=== PATIENT | male | born 1945 | race Caucasian/White ===

== ENCOUNTER 2019-02-27 00:59 | Inpatient (IN) ==
[~2019-02-27 00:59] MED LIST: HEPARIN/NACL 0.9% 2 UNITS/ML 1,000 ML IV ONE; HYDROmorphone 2 MG/1 ML VIAL ONE; LIDOCAINE 1% 20 ML VIAL ONE; MIDAZOLAM 2 MG/2 ML VIAL ONE; NITROGLYCERIN DRIP 50 MG/250 ML BOTTLE IV ONE; VERAPAMIL 5 MG/2 ML VIAL ONE
[2019-02-27] MEDS ORDERED: ENOXAPARIN 30 MG/0.3 ML SYRINGE ONE (01:12)
[2019-02-27] MEDS ORDERED: TICAGRELOR 90 MG TABLET ONE (02:09)
[2019-02-27] MEDS ORDERED: ZALEPLON 5 MG CAPSULE PO PRN (02:13)
[2019-02-27] MEDS ORDERED: EPTIFIBATIDE 20,000 MCG/10 ML VIAL ONE (02:15)
[2019-02-27] MEDS ORDERED: SODIUM CHLORIDE 0.9% 1,000 ML IV SCH (02:30)
[2019-02-27 03:47] LABS: Basophils % 0.2 % (0.0-0.8); Eosinophils % 0.1 % (0.00-10.9); Hematocrit 35.9 VOL% (42.0-52.0); Hemoglobin 11.8 GM/DL (14.0-18.0); Immature Granulocytes % 0.5 %; Immature Granulocytes Absolute 0.06 #; Lymphocytes # 0.8 10*3/uL (1.4-4.0); Lymphocytes % 6.3 % (21.2-54.2); Mean Corpuscular HGB Conc 32.9 GM/DL (32-36); Mean Corpuscular Volume 88.2 FL (87-102); Mean Platelet Volume 10.3 FL (9.6-12.0); Monocytes % 4.4 % (1.7-12.7); Neutrophils % 88.5 % (38.7-73.9); Platelet Count 167 T/CUMM (130-400); Red Blood Count 4.07 MC/CUMM (3.8-5.5); Red Cell Distribution Width 11.9 % (9.3-17.3); White Blood Count 12.1 T/CUMM (4-12)
[2019-02-27 04:14] LABS: Calcium 8.1 MG/DL (8.5-10.1); Osmolality,Calculated 282.4 MOS/KG (273-304); Risk Ratio 1.83; VLDL CHOLESTEROL 10.4 MG/DL
[2019-02-27 04:51] LABS: CKMB % 9.3 %
[2019-02-27 05:00] LABS: Troponin I 29.1 NG/ML (0.00-0.045)
[2019-02-27 06:43] LABS: CKMB % 11.1 %
[2019-02-27 06:45] LABS: Troponin I 70.3 NG/ML (0.00-0.045)
[2019-02-27 08:46] LABS: CKMB % 10.3 %
[2019-02-27 08:47] LABS: Troponin I 87.1 NG/ML (0.00-0.045)
[2019-02-27] MEDS ORDERED: DEXTROSE 50% 25 GM/50 ML SYRINGE IV PRN (08:49)
[2019-02-27] MEDS ORDERED: GLUCAGON 1 MG VIAL IM PRN (08:49)
[2019-02-27] MEDS: METOPROLOL TARTRATE 50 MG TABLET PO SCH ×2 (09:14→21:12)
[2019-02-27] MEDS: ASPIRIN EC 81 MG TABLET PO SCH (09:14)
[2019-02-27] MEDS: LOSARTAN 25 MG TABLET PO SCH (09:14)
[2019-02-27] MEDS: TICAGRELOR 90 MG TABLET PO SCH ×2 (09:14→21:12)
[2019-02-27] MEDS: TAMSULOSIN 0.4 MG CAPSULE PO SCH ×2 (12:33→21:12)
[2019-02-27] MEDS: INSULIN REGULAR 100 UNIT/ML SUBCUT SCH ×2 (16:14→21:15)
[2019-02-27] MEDS: SILDENAFIL 20 MG TABLET PO SCH ×2 (16:15→21:10)
[2019-02-27] MEDS ORDERED: ROSUVASTATIN 20 MG TABLET PO SCH (21:00)
[2019-02-28 03:53] LABS: CKMB % 3.8 %; Osmolality,Calculated 283.3 MOS/KG (273-304); Troponin I 39.3 NG/ML (0.00-0.045)
[2019-02-28 05:06] LABS: Basophils % 0.2 % (0.0-0.8); Eosinophils # 0.2 10*3/uL (0.0-0.87); Eosinophils % 1.5 % (0.00-10.9); Hematocrit 34.7 VOL% (42.0-52.0); Hemoglobin 11.6 GM/DL (14.0-18.0); Immature Granulocytes % 0.2 %; Immature Granulocytes Absolute 0.02 #; Lymphocytes # 1.4 10*3/uL (1.4-4.0); Lymphocytes % 14.5 % (21.2-54.2); Mean Corpuscular HGB Conc 33.4 GM/DL (32-36); Mean Platelet Volume 10.3 FL (9.6-12.0); Neutrophils % 74.6 % (38.7-73.9); Platelet Count 170 T/CUMM (130-400); Red Blood Count 3.99 MC/CUMM (3.8-5.5); Red Cell Distribution Width 12.2 % (9.3-17.3); White Blood Count 9.8 T/CUMM (4-12)
[2019-02-28] MEDS: INSULIN REGULAR 100 UNIT/ML SUBCUT SCH ×3 (08:39→16:23)
[2019-02-28] MEDS ORDERED: GLIMEPIRIDE 2 MG TABLET PO SCH (09:00)
[2019-02-28] MEDS: LOSARTAN 25 MG TABLET PO SCH (09:43)
[2019-02-28] MEDS: TICAGRELOR 90 MG TABLET PO SCH (09:43)
[2019-02-28] MEDS: ASPIRIN EC 81 MG TABLET PO SCH (09:43)
[2019-02-28] MEDS: METOPROLOL TARTRATE 50 MG TABLET PO SCH (09:44)
[2019-02-28] MEDS: TAMSULOSIN 0.4 MG CAPSULE PO SCH (09:47)
[2019-02-28] MEDS: SILDENAFIL 20 MG TABLET PO SCH ×2 (09:47→14:52)
[2019-02-28 16:25] VITALS: BP 104/58
[2019-03-01] MEDS ORDERED: QUINAPRIL 5 MG TABLET PO SCH (09:00)
== END 2019-02-28 16:44 | disposition home or self-care (01) | DRG 247 ==
LOC: N.CC 00:59 → N.ICU 02:21 → N.TELES 16:49
PROVIDERS: ADMIT Internal Medicine Cardiovascular Disease; ATTEND Internal Medicine Cardiovascular Disease

== ENCOUNTER 2021-02-12 10:45 | Observation (INO) ==
[2021-02-12 11:12] LABS: Basophils % 0.3 % (0.0-0.8); Eosinophils # 0.1 10*3/uL (0.0-0.87); Eosinophils % 0.9 % (0.00-10.9); Hematocrit 42.1 VOL% (42.0-52.0); Hemoglobin 13.9 GM/DL (14.0-18.0); Immature Granulocytes % 0.4 %; Immature Granulocytes Absolute 0.05 #; Lymphocytes % 8.8 % (21.2-54.2); Mean Corpuscular Volume 87.9 FL (87-102); Mean Platelet Volume 9.3 FL (9.6-12.0); Monocytes % 7.1 % (1.7-12.7); Neutrophils % 82.5 % (38.7-73.9); Platelet Count 220 T/CUMM (130-400); Red Blood Count 4.79 MC/CUMM (3.8-5.5); Red Cell Distribution Width 12.3 % (9.3-17.3); White Blood Count 11.6 T/CUMM (4-12)
[2021-02-12] MEDS ORDERED: NITROGLYCERIN SL 0.4 MG TABLET SL PRN (11:12)
[2021-02-12 11:30] LABS: INR 1.1; PT Patient Result 12.1 SECS (10.5-12.0)
[2021-02-12] MEDS ORDERED: ALUM/MAG/SIMETH/LIDO VISC 1:1 30 ML BOTTLE PO ONE (11:33)
[2021-02-12 11:34] LABS: Albumin 4.1 G/DL (3.4-5.0); Calcium 9.4 MG/DL (8.5-10.1); Osmolality,Calculated 283.3 MOS/KG (273-304); Potassium 3.9 MMOL/L (3.5-5.1); Total Protein 7.2 G/DL (6.4-8.2)
[2021-02-12] MEDS ORDERED: ALUM/MAG/SIMETH/LIDO VISC 1:1 30 ML BOTTLE PO STA (11:39)
[2021-02-12] MEDS ORDERED: ONDANSETRON 4 MG/2 ML VIAL IV PRN (12:07)
[2021-02-12] MEDS ORDERED: DEXTROSE 50% 25 GM/50 ML VIAL IV PRN (12:07)
[2021-02-12] MEDS ORDERED: GLUCAGON 1 MG VIAL IM PRN (12:07)
[2021-02-12] MEDS ORDERED: ACETAMINOPHEN 325 MG TABLET PO PRN (12:07)
[2021-02-12] MEDS ORDERED: ENOXAPARIN 40 MG/0.4 ML SYRINGE SUBCUT SCH (12:30)
[2021-02-12 12:42] LABS: Risk Ratio 2.08; Thyroid Stimulating Hormone 3.09 uIU/ml (0.358-3.74); VLDL CHOLESTEROL 15.8 MG/DL
[2021-02-12] MEDS: INSULIN LISPRO 100 UNIT/ML SUBCUT SCH ×2 (16:30→21:34)
[2021-02-12] MEDS ORDERED: TAMSULOSIN 0.4 MG CAPSULE PO SCH (21:00)
[2021-02-12] MEDS ORDERED: ROSUVASTATIN 20 MG TABLET PO SCH (21:00)
[2021-02-12] MEDS: carvediloL 3.125 MG TABLET PO SCH (21:30)
[2021-02-13 06:07] LABS: Basophils % 0.3 % (0.0-0.8); Eosinophils # 0.3 10*3/uL (0.0-0.87); Eosinophils % 2.9 % (0.00-10.9); Hematocrit 38.7 VOL% (42.0-52.0); Hemoglobin 12.5 GM/DL (14.0-18.0); Immature Granulocytes % 0.3 %; Immature Granulocytes Absolute 0.03 #; Lymphocytes # 1.3 10*3/uL (1.4-4.0); Lymphocytes % 14.1 % (21.2-54.2); Mean Corpuscular HGB Conc 32.3 GM/DL (32-36); Mean Platelet Volume 9.9 FL (9.6-12.0); Monocytes % 8.2 % (1.7-12.7); Neutrophils % 74.2 % (38.7-73.9); Platelet Count 207 T/CUMM (130-400); Red Blood Count 4.35 MC/CUMM (3.8-5.5); Red Cell Distribution Width 12.1 % (9.3-17.3); White Blood Count 9.4 T/CUMM (4-12)
[2021-02-13 06:23] LABS: Calcium 8.9 MG/DL (8.5-10.1); Osmolality,Calculated 280.4 MOS/KG (273-304); Potassium 3.8 MMOL/L (3.5-5.1)
[2021-02-13] MEDS ORDERED: LEVOTHYROXINE 75 MCG TABLET PO SCH (07:00)
[2021-02-13] MEDS ORDERED: LEVOTHYROXINE 50 MCG TABLET PO SCH (07:00)
[2021-02-13] MEDS ORDERED: NITROFURANTOIN MACRO/MONO 100 MG CAPSULE PO SCH (08:00)
[2021-02-13] MEDS: INSULIN LISPRO 100 UNIT/ML SUBCUT SCH (08:04)
[2021-02-13 08:16] VITALS: BP 141/72
[2021-02-13] MEDS ORDERED: lisinopriL 5 MG TABLET PO SCH (09:00)
[2021-02-13] MEDS ORDERED: CLOPIDOGREL 75 MG TABLET PO SCH (09:00)
[2021-02-13] MEDS ORDERED: ASPIRIN EC 81 MG TABLET PO SCH (09:00)
[2021-02-13] MEDS ORDERED: PANTOPRAZOLE 40 MG TABLET PO SCH (09:00)
[2021-02-13] MEDS ORDERED: PHENOL 1.4% THROAT SPRAY 177 ML BOTTLE PO PRN (09:38)
[2021-02-13] MEDS: carvediloL 3.125 MG TABLET PO SCH (10:49)
== END 2021-02-13 11:25 | disposition home or self-care (01) ==
LOC: N.EDINP 10:45 → N.ED 10:45 → N.EDINP 15:34 → N.TELEN 16:08
PROVIDERS: ADMIT Internal Medicine; ATTEND Internal Medicine